=== PATIENT | male | born 1985 ===

== ENCOUNTER 2017-05-08 08:40 | Emergency (ER) | payer MEDICAID ==
[2017-05-08 08:50] VITALS: O2SAT 100
[2017-05-08 09:19] LABS: BASO # 0.2 K/uL (0.0-0.2); BASO % 1.2 % (0.0-2.0); EOS % 0.1 % (0.0-4.0); HEMOGLOBIN 13.9 g/dL (12.0-18.0); LYMPH # 2.1 K/uL (1.0-4.3); LYMPH % 14.3 % (20.0-40.0); MEAN CELL VOLUME 82.9 fL (80.0-94.0); MEAN CORPUSCULAR HEMOGLOBIN 28.7 pg (27.0-31.0); MEAN CORPUSCULAR HGB CONC 34.6 g/dL (33.0-37.0); MEAN PLATELET VOLUME 9.5 fL (7.2-11.7); MONO # 0.5 K/uL (0.0-0.8); MONO % 3.1 % (0.0-10.0); NEUT # 11.9 K/uL (1.8-7.0); NEUT % 81.3 % (50.0-75.0); RBC 4.83 Mil/uL (4.40-5.90); RED CELL DISTRIBUTION WIDTH 13.7 % (11.5-14.5); WHITE BLOOD COUNT 14.6 K/uL (4.8-10.8)
[2017-05-08 09:32] LABS: ALB/GLOB RATIO 1.2 (1.0-2.1); ALBUMIN 4.8 g/dL (3.5-5.0); ALT/SGPT 57 U/L (21-72); AST/SGOT 36 U/L (17-59); BLOOD UREA NITROGEN 10 mg/dL (9-20); CALCIUM 9.9 mg/dl (8.6-10.4); GFR AFRICAN-AMERICAN > 60; GFR NON-AFRICAN AMERICAN > 60
--- NOTE | 2017-05-08 10:40 | C.PDOC ---
History Of Present Illness 32-year-old male, presents to the emergency department with complaints of withdrawal symptoms. Patient states he is using Oxycodone and Oxycontin x7 years , prescribed to him by Dr Loco Tovar. Patient states he was initially given the medication for a shoulder fracture, and has continued using it since. Patient notes that for the past two days, after he ran out of his medication, he has been experiencing diffuse abdominal pain, associated with nausea and several episodes of non-bloody/non-bilious vomiting. Patient denies SI/HI. No other complaints Time Seen by Provider: 05/08/17 08:46 Chief Complaint (Nursing): Abdominal Pain Past Medical History Reviewed: Historical Data, Nursing Documentation, Vital Signs Vital Signs: Last Vital Signs Temp 98.6 F 05/08/17 11:07 Pulse 64 05/08/17 11:07 Resp 20 05/08/17 11:07 BP 145/73 05/08/17 11:07 Pulse Ox 100 05/11/17 12:34 Family History: States: No Known Family Hx - Social History Hx Alcohol Use: No Hx Substance Use: No - Immunization History Hx Tetanus Toxoid Vaccination: No Hx Influenza Vaccination: Yes Hx Pneumococcal Vaccination: Yes Review Of Systems Constitutional: Negative for: Fever, Chills Respiratory: Negative for: Shortness of Breath Gastrointestinal: Positive for: Nausea, Vomiting, Abdominal Pain Musculoskeletal: Negative for: Back Pain Neurological: Negative for: Weakness, Numbness Physical Exam - Physical Exam Appears: Non-toxic, No Acute Distress, Other (Calm, cooperative. No signs or symptoms of acute withdrawal.) Skin: Normal Color, Warm, Dry, No Diaphoretic, No Rash, No Jaundice Head: Normacephalic Eye(s): bilateral: PERRL Nose: Normal Oral Mucosa: Moist Lips: Normal Appearing Neck: Normal ROM Chest: Symmetrical Cardiovascular: Rhythm Regular, No Murmur Respiratory: Normal Breath Sounds, No Accessory Muscle Use Gastrointestinal/Abdominal: Normal Exam, Bowel Sounds, Soft Extremity: Normal ROM, No Deformity, No Swelling Neurological/Psych: Oriented x3, Normal Speech ED Course And Treatment - Laboratory Results Result Diagrams: 05/08/17 09:12 05/08/17 09:12 O2 Sat by Pulse Oximetry: 100 (RA) Pulse Ox Interpretation: Normal Medical Decision Making Medical Decision Making: Impression 42y/o M comes in requesting detox from opiates Plan: * Bloodwork/UDS * Catapres, Pepcid, Toradol, Zofran * UA * Reassess and Disposition Crisis evaluated patient, he is refusing to give urine for labs. Patient is now refusing crisis intervention and would like to go home. Disposition Counseled Patient/Family Regarding: Studies Performed, Diagnosis, Need For Followup - Disposition Referrals: Guy Adan MD [Staff Provider] - Disposition: HOME/ ROUTINE Disposition Time: 10:38 Condition: STABLE Additional Instructions: follow up with your doctor today you have refused detox return to ER if symptoms worsens or progress Prescriptions: Ondansetron ODT [Zofran ODT] 4 mg PO TID PRN #12 odt PRN Reason: Nausea/Vomiting Instructions: Opioid Use Disorder Forms: [facility] ([place]), General Discharge Instructions - Clinical Impression Clinical Impression: Opiate abuse, continuous - Scribe Statement The provider has reviewed the documentation as recorded by the Scribe (Victor Manuel Robbins) All medical record entries made by the Scribe were at my direction and personally dictated by me. I have reviewed the chart and agree that the record accurately reflects my personal performance of the history, physical exam, medical decision making, and the department course for this patient. I have also personally directed, reviewed, and agree with the discharge instructions and disposition.
[2017-05-08 11:09] VITALS: BP 145/73; PULSE 64; RESP 20; TEMP 98.6
== END 2017-05-08 11:07 | disposition home or self-care (01) ==
LOC: C.ER 08:40
DX: F11.10 Opioid abuse, uncomplicated (principal)
CPT/HCPCS: 80053; 80320; 85025; 96374; 96375; 99284; J1885; J2405